=== PATIENT | male | born 2000 | race Caucasian/White ===

== ENCOUNTER → 2018-04-25 | Outpatient (CLI) | payer OTHER | END | disposition home or self-care (01) | LOC: MRI 14:21 | DX: M51.16 Intervertebral disc disorders with radiculopathy, lumbar region (principal); M53.3 Sacrococcygeal disorders, not elsewhere classified; M48.07 Spinal stenosis, lumbosacral region; M12.88 Other specific arthropathies, not elsewhere classified, other specified site | CPT/HCPCS: 72148 ==

== ENCOUNTER → 2018-06-14 | Outpatient (CLI) | payer OTHER ==
[~2018-06-14] MED LIST: IBUP-1027 PO
--- NOTE | 2018-06-14 14:25 | PAIN ---
DATE OF SERVICE: 06/14/2018 INITIAL CONSULTATION FOR PAIN CLINIC CHIEF COMPLAINT: Low back and left lower extremity pain. HISTORY OF PRESENT ILLNESS: This is a 18-year-old male who presents with history of pain since about January of this year, gradually increasing, not a result of any specific injury or action that he is aware of, but it has been getting worse and worse with time, now significant pain in the low back radiating into the posterior gluteus, posterior thigh, posterior calf into the foot on the left side, worse with walking, standing and changing positions, also awakens him from sleep frequently and can be exacerbated with sitting for more than 15-20 minutes as well. The patient reports it does not affect his bowel or bladder control, but does affect his ability to walk. He has no specific loss of motor in the left leg, but very significant fatigability and weakness with walking more than about 5-10 minutes. The patient reports sitting down decreases his pain but does not relieve it. He has been taking ibuprofen as well as [id number] Tylenol without significant decrease in pain. The patient did have stretching and strengthening exercises taught with his physical routines and a local seeing eye dog trainer at his gymnasium and he has been doing stretching and strengthening exercises on his own for about 4 months now, but without significant improvement. The patient is also walking daily, trying to walk on his left leg; however, is limiting significantly over the past month or so as he is unable to walk more than even about a quarter of a mile without having to stop and rest. The patient reports the pain is constant, sharp, stabbing, throbbing, becoming more intense and severe, radiating into the posterior gluteus, posterior thigh and calf and foot as noted. The patient has not had any formal physical therapies or any formal chiropractic treatments or other modalities at this time, but he is doing stretching and strengthening exercises on his own again from a seeing eye dog trainer at his local gymnasium. 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 The patient rates his disability rating from 0-10, 10 being the worst, is an 8 with family and home responsibilities, 9 with recreation, 7 with social activity and occupation, 3 with sexual behavior, 6 with self care and life support activities. The patient did have an MRI scan of the lumbar spine showing at L5-S1, left central disk extrusion superimposed on mild circumferential disk bulge with mild to moderate facet arthropathy, mild neural foraminal stenosis with left lateral recess stenosis affecting the traversing left S1 nerve. PAST MEDICAL HISTORY: Significant for only tonsillectomy in 2013, otherwise the patient has been in good condition. MEDICATIONS: [id number] ibuprofen and Tylenol. ALLERGIES: The patient has no known drug allergies. FAMILY HISTORY: Significant for heart disease, cancers and diabetes. SOCIAL HISTORY: The patient does not smoke, drinks alcohol very rarely, less than once a month. Does not use any illegal, illicit or recreational drugs. The patient is single, lives locally in [place], [place]. REVIEW OF SYSTEMS: The patient's review of systems is positive for those items mentioned in history of present illness. All systems reviewed and otherwise negative. It is complete, full and well documented on the patient's chart. PHYSICAL EXAMINATION: VITAL SIGNS: The patient's blood pressure is 137/80, pulse 77, respirations 16, temperature 98.1 degrees Fahrenheit, height is 6 feet 1 inch, weight is 202 pounds. GENERAL: The patient is awake, alert, oriented, appropriate, very pleasant demeanor. HEENT: Head shows normocephalic, atraumatic. Extraocular movements are intact and symmetrical. Oral cavity: Mucous membranes are moist and pink. Dentition is intact. NECK: Shows anterior throat supple without palpable lymphadenopathy noted. Swallow reflex is symmetrical. CHEST: Shows normal on inspection. Breath sounds are clear to auscultation bilaterally. HEART: Shows S1, S2 clear. No murmurs auscultated. ABDOMEN: Soft, nontender, nondistended. No palpable organomegaly is noted. No rebound or guarding demonstrated. BACK: Shows spine grossly in the midline. Normal appearing thoracic kyphosis and lumbar lordotic curvature. Lumbar paraspinous muscles shows symmetrical on inspection, on palpation shows some moderate tenderness but only diffusely in the middle and lower distribution of the paraspinous muscles. No tenderness over the spinous processes, sacrum or sacroiliac regions. The patient has good rotational motion of the lumbar spine, both laterally as well as extension and flexion without significant pain reported. EXTREMITIES: The patient's lower extremities show deep tendon reflexes at 2+ in the patellar and 1+ tendo calcaneus tendons, are equal. Motor exam is strong with 5/5 dorsiflexion, extension, quadriceps and hamstring flexion. Peripheral pulses are 1+ posterior tibia. No peripheral edema is noted. Lower extremities are warm and dry to touch, equal in color and appearance. The patient's lower extremities show positive straight leg raise on the left at about 40 degrees, decreased with knee flexion, right side is negative. Gaenslen's and Ross's maneuvers are negative bilaterally. The patient is able to stand, stand on his toes without difficulty or loss of balance, is walking with a slight shuffling gait, does appear to favor the left lower extremity mildly, not using any assistive devices to ambulate. IMPRESSION: 1. This is a 18-year-old male with approximate 4-month history of low back and left lower extremity pain in a radicular fashion following an L5-S1 dermatomal pattern, worse with weightbearing, standing, walking, despite daily exercises, stretching and strengthening and walking. 2. MRI scan of lumbar spine as noted. PLAN: Options were discussed with the patient including conservative medical management, physical therapies, interventional techniques. He would like to pursue interventional techniques as he is doing his stretching routines and therapy routines without significant improvement. We discussed a lumbar epidural steroid injection using descriptions as well as anatomical models to describe the procedure. The patient will wait for preauthorization with his insurance provider. I encouraged him to keep doing his stretching exercises and strengthening as best he can and walking if possible. We will also try Medrol Dosepak. The patient was given instructions as well as side effects to be aware of with the medication and will follow up in approximately one week. We will plan on lumbar epidural steroid injection once preauthorization is obtained. ARPAN GEORGE MD DR: JOSELYN/jaden JOB#: [id number] / [id number] KUSH Villanueva MD
== END | disposition home or self-care (01) ==
LOC: PNCL 08:33
PROVIDERS: ATTEND Anesthesiology
DX: M54.5 Low back pain (principal); M79.605 Pain in left leg
CPT/HCPCS: 99214

== ENCOUNTER → 2018-06-28 | Outpatient (CLI) | payer OTHER ==
[~2018-06-28] MED LIST changes: +IOHEXOL 180 MG/ML 10 ML VIAL. ONE; +LIDOCAINE 2% PF 2ML VIAL. ONE; +methylPREDNISolone ACETATE 40 MG/ML VIAL. ONE; +methylPREDNISolone ACETATE 80 MG/ML VIAL. ONE
--- NOTE | 2018-06-28 16:04 | PAIN ---
DATE OF SERVICE: 06/28/2018 DIAGNOSES: Lumbar radiculopathy with lumbar herniated disk, lumbar degenerative disk disease. HISTORY OF PRESENT ILLNESS: The patient is a 18-year-old male who returns for followup status post initial evaluation and preauthorization for lumbar epidural steroid injection. The patient has obtained this and would like to proceed today. The patient reports still significant pain in low back, left lower extremity, mostly in the posterior gluteus, posterior thigh, posterior calf, radiating also to the medial thigh and calf on the left side. It is reported as aching, sharp, shooting, becoming more constant, worse with standing, walking and better with sitting or lying down, does not awaken him from sleep every night, but does most nights. The patient reports the pain is a 10 on scale of 10 at its worst, 9 on average, 7 at its least and is a 9 today. The patient reports no new motor or sensory deficits, no new bowel or bladder incontinence or other complaints. PHYSICAL EXAMINATION: VITAL SIGNS: The patient's blood pressure 130/80, pulse 88, respirations 16, temperature 97.8 degrees Fahrenheit, and weight is 202 pounds. GENERAL: The patient is awake, alert, oriented, appropriate, very pleasant demeanor. HEENT: Head shows normocephalic, atraumatic. Extraocular movements are intact and symmetrical. Oral cavity: Mucous membranes moist and pink. Dentition is intact. NECK: Shows anterior throat supple without palpable lymphadenopathy noted. Swallow reflex symmetrical. CHEST: Shows normal on inspection. Breath sounds clear to auscultation bilaterally. HEART: Shows S1, S2 clear. No murmurs auscultated. ABDOMEN: Soft, nontender, nondistended. No palpable organomegaly. There is no rebound or guarding demonstrated. BACK: Shows spine grossly in the midline. Normal appearing thoracic kyphosis and lumbar lordotic curvature. Lumbar paraspinous muscle shows symmetrical on inspection with some mild tenderness, but only diffusely in the lower lumbar distribution without radiation. The patient's back shows good rotational motion of lumbar spine, both laterally as well as extension and flexion without difficulty. EXTREMITIES: Lower extremities show deep tendon reflexes 2+ in the patellar, 1+ tendo calcaneus tendons. Motor exam is strong with 5/5 dorsiflexion, extension, quadriceps and hamstring flexion. Peripheral pulses are 1+ posterior tibia. No peripheral edema is noted bilaterally. Options were discussed with the patient. The patient's old chart was reviewed, as his current medication reviewed and updated. The patient's medication list updated today as well. We will proceed with a lumbar epidural steroid injection today with fluoroscopic guidance. Risks were again discussed including, but not limited to bleeding, infection, possibility of epidural hematoma and subsequent neurological compromise, dural puncture, headaches, spinal cord and/or nerve damage, side effects of steroid medication and poor results regarding pain control. The patient understands and wished to proceed. The patient to return to clinic in approximately 2 weeks for followup. He was counseled on return appointment, activity level and side effects to be aware of. DIAGNOSES: Lumbar radiculopathy with lumbar herniated disk and lumbar degenerative disk disease. PROCEDURE: Lumbar epidural steroid injection, translaminar approach L5-S1 level using C-arm fluoroscopic guidance under sterile prep and drape using local anesthetic. MEDICATION INJECTED: A total of 120 mg Depo-Medrol, plus 10 mL of preservative-free normal saline and 2 mL of Isovue for contrast. CONDITION AT DISCHARGE: Stable. The patient tolerated procedure well, had no complications. ARPAN GEORGE MD DR: JOSELYN/jaden JOB#: [id number] / [id number]
== END | disposition home or self-care (01) ==
LOC: PNCL 08:23
PROVIDERS: ATTEND Anesthesiology
DX: M51.16 Intervertebral disc disorders with radiculopathy, lumbar region (principal); Z79.1 Long term (current) use of non-steroidal anti-inflammatories (NSAID); Z79.899 Other long term (current) drug therapy
CPT/HCPCS: 62323; J1030; J1040; J2001; Q9965

== ENCOUNTER → 2018-07-12 | Outpatient (CLI) | payer OTHER ==
[~2018-07-12] MED LIST changes: -IOHEXOL 180 MG/ML 10 ML VIAL. ONE; -LIDOCAINE 2% PF 2ML VIAL. ONE; -methylPREDNISolone ACETATE 40 MG/ML VIAL. ONE; -methylPREDNISolone ACETATE 80 MG/ML VIAL. ONE
--- NOTE | 2018-07-12 23:16 | PAIN ---
DATE OF SERVICE: 07/12/2018 PROGRESS NOTE FOR PAIN CLINIC DIAGNOSES: Lumbar radiculopathy with lumbar degenerative disk disease and lumbar herniated disk. HISTORY OF PRESENT ILLNESS: The patient is a 18-year-old male who returns for followup status post lumbar epidural steroid injection x 1. The patient reports about 75% improvement initially, now about 50% improvement overall but for the past 3 weeks, has been doing much better. The patient reports it is still currently helping with the pain is better in his left leg. The patient reports still some radiating pain in the low back, left lower extremity, posterior gluteus, posterior thigh and posterior calf only on the left side but again much better. The patient with increased activity, walking and doing work activities with greater ease and comfort and household activities especially with greater ease. He is sleeping well at night, does not bother him when he is lying down, worse with standing, walking, changing positions. The patient reports a stabbing pain as sharp, dull, shooting in the left leg as described. The patient reports it is a 9 on a scale of 10 at its worst, 7 on average, 4 at its least and is a 7 today. The patient reports no new motor or sensory deficits and no new bowel or bladder incontinence. The patient continues to do stretching and strengthening exercises on his own as well and is doing these twice daily, also taking some Advil and this seems to help to a mild extent taking it 2-3 times a day but not every day. The patient reports no new motor or sensory deficits and no new bowel or bladder incontinence or other complaints. PHYSICAL EXAMINATION: VITAL SIGNS: The patient's blood pressure is 135/81, pulse 87, respirations 20 and temperature 98.2 degrees Fahrenheit. Height is 6 feet 1 inch and weight is 200 pounds. GENERAL: The patient is awake, alert, oriented, appropriate and very pleasant demeanor. HEENT: Head shows normocephalic and atraumatic. Extraocular movements are intact and symmetrical. Oral cavity: Mucous membranes moist and pink. Dentition is intact. NECK: Shows anterior throat supple without palpable lymphadenopathy noted. Swallow reflex is symmetrical. CHEST: Shows normal on inspection. Breath sounds clear to auscultation bilaterally. HEART: Shows S1 and S2 clear. No murmurs auscultated. ABDOMEN: Soft, nontender and nondistended. No palpable organomegaly is noted. No rebound or guarding demonstrated. BACK: Shows spine grossly in the midline. Normal-appearing thoracic kyphosis and lumbar lordotic curvature. Lumbar paraspinous musculature shows symmetrical on inspection and palpation shows some moderate tenderness bilaterally but only diffusely without radiation. The patient's back shows good rotational motion of the lumbar spine both laterally as well as extension and flexion without difficulty. EXTREMITIES: Lower extremities show deep tendon reflexes 2+ patellar, 1+ tendo-calcaneus tendons. Motor exam is strong with 5/5 dorsiflexion and extension and equal. Peripheral pulses are 1+ posterior tibial. No peripheral edema is noted bilaterally. The patient does have still slight straight leg raise, just positive on the left side about 40 degrees, decreased with knee flexion, right side is negative. Gaenslen's and Ross's maneuvers are negative bilaterally. Options were discussed with the patient. The patient's old chart was reviewed as well as his current medication regimen updated. Current review of systems updated today as well. We will preauthorize the patient for a second lumbar epidural steroid injection. He did very well with the first one, still with some significant radicular pain in L5-S1 dermatomal distribution on the left despite ibuprofen and daily stretching as he has continued. We encouraged him to continue with daily stretching and maintain his exercise as tolerated. We will wait for preauthorization plan on second lumbar epidural steroid injection in approximately 2 weeks. ARPAN GEORGE MD DR: JOSELYN/jaden JOB#: [id number] / [id number]
== END | disposition home or self-care (01) ==
LOC: PNCL 08:36
PROVIDERS: ATTEND Anesthesiology
DX: M51.16 Intervertebral disc disorders with radiculopathy, lumbar region (principal)
CPT/HCPCS: 99212

== ENCOUNTER → 2018-07-26 | Outpatient (CLI) | payer OTHER ==
[~2018-07-26] MED LIST changes: +IOHEXOL 180 MG/ML 10 ML VIAL. ONE; +LIDOCAINE 1% PF 2 ML VIAL. ONE; +methylPREDNISolone ACETATE 40 MG/ML VIAL. ONE; +methylPREDNISolone ACETATE 80 MG/ML VIAL. ONE
--- NOTE | 2018-07-26 15:18 | PAIN ---
DATE OF SERVICE: 07/26/2018 PROGRESS NOTE FOR PAIN CLINIC DIAGNOSIS: Lumbar radiculopathy with lumbar herniated disk and lumbar degenerative disk disease. HISTORY OF PRESENT ILLNESS: The patient is a 18-year-old male who returns for followup status post lumbar epidural steroid injection x 1 and preauthorization for second injection. He would like to proceed with that today as he has obtained permission from his insurance provider. The patient reports still pain in the low back and left lower extremity, posterior gluteus, posterior thigh, posterior calf, better in the back, but still significant pain in the left lower extremity and radiating pain as well. The patient reports about 70% improvement after the first injection. Pain is returning now. The patient reports it is stabbing, sharp, dull, shooting, radiating, becoming more constant, worse with walking, standing, better with sitting or lying down. Does not awaken him from sleep at night. The patient reports no new motor or sensory deficits, no new bowel or bladder incontinence or other complaints. PHYSICAL EXAMINATION: VITAL SIGNS: The patient's blood pressure is 142/77, pulse 98, respirations 16, temperature 97.9 degrees Fahrenheit. Height is 6 feet 1 inch, weight is 201 pounds. GENERAL: The patient is awake, alert, oriented, appropriate, very pleasant demeanor. HEENT: Head shows normocephalic, atraumatic. Extraocular movements are intact and symmetrical. Oral cavity: Mucous membranes are moist and pink. Dentition is intact. NECK: Shows anterior throat supple without palpable lymphadenopathy noted. Swallow reflex is symmetrical. CHEST: Shows normal on inspection. Breath sounds are clear to auscultation bilaterally. HEART: Shows S1, S2 clear. No murmurs auscultated. ABDOMEN: Soft, nontender, nondistended. No palpable organomegaly is noted. No rebound or guarding demonstrated. BACK: Shows spine grossly in the midline. Normal appearing thoracic kyphosis and lumbar lordotic curvature. Lumbar paraspinous muscle shows symmetrical on inspection, on palpation shows some moderate tenderness but only diffusely bilaterally without radiation. EXTREMITIES: The patietn's lower extremities show deep tendon reflexes at 2+ in the patellar, 1+ tendo calcaneus tendons. Motor exam is strong with 5/5 dorsiflexion, extension and equal bilaterally. Peripheral pulses are 1+ posterior tibia. No peripheral edema is noted. Options were discussed with the patient. The patient's old chart was reviewed as his current medication regimen updated. Current review of systems updated today as well. We will proceed with a second in this series of lumbar epidural steroid injection today with fluoroscopic guidance. Risks were again discussed including, but not limited to bleeding, infection, possibility of epidural hematoma, subsequent neurological compromise, dural puncture, headaches, spinal cord and/or nerve damage, side effects of steroid medication and poor results regarding pain control. The patient understands and wished to proceed. The patient will return to the clinic in approximately 2 weeks for followup, was counseled on return appointment, activity level and effects to be aware of. DIAGNOSIS: Lumbar radiculopathy with lumbar herniated disk and lumbar degenerative disk disease. PROCEDURE: Lumbar epidural steroid injection, translaminar approach at L5-S1 level using C-arm fluoroscopic guidance under sterile prep and drape using local anesthetic. MEDICATION INJECTED: A total of 120 mg Depo-Medrol plus 10 mL of preservative-free normal saline and 2 mL of Isovue for contrast. CONDITION AT DISCHARGE: Stable. The patient tolerated the procedure well, had no complications ARPAN GEORGE MD DR: JOSELYN/jaden JOB#: [id number] / [id number]
== END | disposition home or self-care (01) ==
LOC: PNCL 11:11
PROVIDERS: ATTEND Anesthesiology
DX: M51.16 Intervertebral disc disorders with radiculopathy, lumbar region (principal)
CPT/HCPCS: 62323; J1030; J1040; Q9965